=== PATIENT | male | born 1965 | race Caucasian/White ===

== ENCOUNTER 2021-09-16 15:56 | Emergency (ER) | payer OTHER ==
[~2021-09-16] VITALS: Ht 182.9 cm; Wt 104.3 kg
[2021-09-16] MEDS ORDERED: TETANUS/DIPHTHERIA TOX ADULT 0.5 ML SYR IM ONE (17:00)
[2021-09-16] MEDS ORDERED: CEPHALEXIN 500 MG CAP PO ONE (18:00)
[2021-09-16] MEDS ORDERED: MOTRIN800 MG PO (18:57)
[2021-09-16] MEDS ORDERED: CEPHALEXIN500 MG PO (18:57)
== END 2021-09-16 20:21 | disposition home or self-care (01) ==
LOC: ER 16:51
DX: S61.213A Laceration without foreign body of left middle finger without damage to nail, initial encounter (principal); S66.323A Laceration of extensor muscle, fascia and tendon of left middle finger at wrist and hand level, initial encounter; W23.1XXA Caught, crushed, jammed, or pinched between stationary objects, initial encounter; Y93.89 Activity, other specified; Y92.89 Other specified places as the place of occurrence of the external cause
CPT/HCPCS: 90714